=== PATIENT | female | born 2000 | race Caucasian/White ===

== ENCOUNTER 2022-05-28 14:29 | Outpatient (CLI) | payer OTHER | END 2022-05-28 14:30 | disposition home or self-care (01) | LOC: CSHULT 14:29 | PROVIDERS: ATTEND Family Medicine | DX: Z34.82 Encounter for supervision of other normal pregnancy, second trimester (principal); Z3A.21 21 weeks gestation of pregnancy | CPT/HCPCS: 76805 ==

== ENCOUNTER 2022-07-04 12:54 | Emergency (ER) | payer OTHER ==
[2022-07-04 14:29] LABS: SARS-CoV-2 NAA Rapid Test DETECTED (NotDetected)
== END 2022-07-04 13:49 | disposition home or self-care (01) ==
LOC: CSHERS 12:54
DX: O98.512 Other viral diseases complicating pregnancy, second trimester (principal); U07.1 COVID-19; O23.591 Infection of other part of genital tract in pregnancy, first trimester; N89.8 Other specified noninflammatory disorders of vagina; Z3A.24 24 weeks gestation of pregnancy
CPT/HCPCS: 99283

== ENCOUNTER 2022-08-19 14:28 | Day surgery (SDC) | payer OTHER ==
[2022-08-19 15:08] VITALS: BMI 23.6
[2022-08-19] MEDS ORDERED: hydrALAZINE 20 MG/ML VIAL SLOW IVP PRN (15:48)
== END 2022-08-19 15:50 | disposition home or self-care (01) ==
LOC: CSHLD/OP 14:28
PROVIDERS: ATTEND Family Medicine
DX: O36.8130 Decreased fetal movements, third trimester, not applicable or unspecified (principal); Z3A.33 33 weeks gestation of pregnancy; Z79.899 Other long term (current) drug therapy
CPT/HCPCS: 87480; 87510; 87660; 99284

== ENCOUNTER 2022-08-23 01:12 | Emergency (ER) | payer OTHER ==
[2022-08-23] MEDS ORDERED: Tetracaine 0.5% PF 4 ML BOT ONE (01:54)
== END 2022-08-23 02:26 | disposition home or self-care (01) ==
LOC: CSHERS 01:12
DX: O99.891 Other specified diseases and conditions complicating pregnancy (principal); H92.01 Otalgia, right ear
CPT/HCPCS: 99282

== ENCOUNTER 2023-08-10 14:05 | Emergency (ER) | payer OTHER ==
[2023-08-10] MEDS ORDERED: Acetaminophen 500 MG TAB ONE (18:38)
[2023-08-10] MEDS ORDERED: Ketorolac Tromethamine 30 MG/ML VIAL ONE (18:38)
[2023-08-10] MEDS ORDERED: Metoclopramide HCl 10 MG/2 ML VIAL ONE (18:38)
== END 2023-08-10 20:11 | disposition home or self-care (01) ==
LOC: CSHERS 14:05
DX: R47.01 Aphasia (principal); R51.9 Headache, unspecified; R20.0 Anesthesia of skin; F17.290 Nicotine dependence, other tobacco product, uncomplicated
CPT/HCPCS: 70450; 96361; 96374; 96375; J1885; J2765